=== PATIENT | female | born 1990 | race Hispanic/Latino ===

== ENCOUNTER 2020-01-02 02:47 | Emergency (ER) | payer SELFPAY ==
[~2020-01-02] VITALS: Ht 157.5 cm; Wt 88.5 kg
[2020-01-02] MEDS ORDERED: AUGMENTIN 875-1 EACH PO (03:16)
== END 2020-01-02 03:50 | disposition home or self-care (01) ==
LOC: FSED 02:47
DX: J03.00 Acute streptococcal tonsillitis, unspecified (principal)
CPT/HCPCS: 83518; 99283